=== PATIENT | female | born 1995 | race Caucasian/White ===

== ENCOUNTER → 2020-08-06 | Outpatient (CLI) | payer OTHER ==
[2020-08-06 19:04] LABS: Basophils # (A) 0.04 X 10*3/uL (0.00-0.10); Basophils % (A) 0.6 %; Eosinophils # (A) 0.02 X 10*3/uL (0.04-0.35); Eosinophils % (A) 0.3 %; HCT 41.7 % (37.2-46.3); HGB 13.4 g/dL (12.0-15.0); Lymphocytes # (A) 1.47 X 10*3/uL (0.90-5.00); Lymphocytes % (A) 23.6 %; MCH 29.3 pg (27.0-32.0); MCHC 32.1 g/dL (32.0-37.0); Mean Platelet Volume 10.7 fL (9.5-12.2); Monocytes # (A) 0.46 X 10*3/uL (0.20-1.00); Monocytes % (A) 7.4 %; Neutrophils # (A) 4.22 X 10*3/uL (1.80-7.70); Neutrophils % (A) 67.9 %; Platelet Count 301 X 10*3/uL (140-440); RBC 4.58 X 10*6/uL (4.10-5.20); RDW 13.2 % (11.5-14.5); WBC 6.22 X 10*3/uL (4.50-10.00)
[2020-08-07 00:35] LABS: African American GFR (CKD) 139.6 (60.0-200.0); Albumin 4.5 g/dL (3.80-4.90); Albumin/Globulin Ratio 2.14 (1.60-3.17); Anion Gap 8.7 mmol/L (4.00-12.00); BUN/Creat Ratio 14.29 Ratio (12.00-20.00); Carbon Dioxide 24.3 mmol/L (21.6-31.8); Globulin 2.1 g/dL (1.6-3.3); Non-African American GFR(CKD) 120.4 (60.0-200.0); Potassium 4.5 mmol/L (3.5-5.5); Total Bilirubin 0.4 mg/dL (0.2-1.2); Total Protein 6.6 g/dL (6.2-8.2)
[2020-08-07 00:37] LABS: Protein, Total 6.6 g/dL (6.2-8.2)
[2020-08-07 00:57] LABS: Beta 2 Microglobulin 1.33 mg/L (0.61-2.37)
[2020-08-07 11:12] LABS: Free Kappa Lt Chain Qnt, Serum 1.49 mg/dL (0.33-1.94)
[2020-08-08 14:51] LABS: Albumin 4.19 g/dL (3.80-4.90); Gamma Globulin 0.84 g/dL (0.70-1.50)
== END | disposition home or self-care (01) ==
LOC: LABWHC1 10:57
PROVIDERS: ATTEND Nurse Practitioner Family
DX: R20.2 Paresthesia of skin (principal)
CPT/HCPCS: 36415; 80053; 82232; 82550; 82607; 83519; 83883; 84165; 85025

== ENCOUNTER → 2024-04-24 | Outpatient (CLI) | payer OTHER ==
--- NOTE | 2024-04-24 09:29 | NM ---
EXAMINATION TYPE: NM hepatobiliary w EF DATE OF EXAM: 04/24/2024 COMPARISON: CT chest abdomen and pelvis 03/20/2013 CLINICAL INDICATION: Female, 29 years old with history of K82.8 OTHER SPECIFIED DISEASES OF GALLBLADD ER; TECHNIQUE: After the intravenous administration of 5.2 mCi Tc 99m Mebrofenin hepatobiliary scintigrap hy is performed. Immediate images post injection. FINDINGS: There is satisfactory initial accumulation of tracer by the liver. The gallbladder is visualized wit hin 18 minutes. The small bowel activity is noted within 24 minutes. At one hour 8 ounces of oral e nsure plus is given to mimic CCK and gallbladder ejection fraction is calculated at 88 %, in the norm al range. Therefore there is no scintigraphic evidence of cystic or common bile duct obstruction to suggest acute cholecystitis or gallbladder dyskinesia. IMPRESSION: Exam is within normal limits. [facility] Samara Melara, , 04/24/2024 9:26 AM
== END | disposition home or self-care (01) ==
LOC: RADNMMAIN 06:59
PROVIDERS: ATTEND Family Medicine
DX: K82.8 Other specified diseases of gallbladder (principal)
CPT/HCPCS: 78226; A9537